=== PATIENT | female | born 1990 | race Caucasian/White ===

== ENCOUNTER → 2019-11-07 | Emergency (ER) | payer BC | LOC: MW.ED 13:35 | DX: Z53.21 Procedure and treatment not carried out due to patient leaving prior to being seen by health care provider (principal) ==

== ENCOUNTER 2020-02-18 23:16 | Inpatient (IN) | payer BC ==
[2020-02-18] MEDS ORDERED: Sodium Chloride 0.9% 2.5 ML Syringe FLUSH PRN (23:30)
[2020-02-18] MEDS ORDERED: Sodium Chloride 0.9% 10 ML Syringe FLUSH PRN (23:30)
[2020-02-18] MEDS ORDERED: Sodium Chloride 0.9% 10 ML SDV IV PRN (23:30)
[2020-02-18] MEDS ORDERED: Ampicillin 2 GM in Sodium Chloride 0.9% 100 ML IV ONE (23:33)
[2020-02-19] MEDS ORDERED: Lactated Ringers 1,000 ML IV SCH (00:15)
[2020-02-19] MEDS ORDERED: Water For Irrigation,Sterile 1,000 ML Container IRR PRN (03:11)
[2020-02-19] MEDS ORDERED: Nalbuphine 10 MG/1 ML Vial IVPUSH PRN (03:11)
[2020-02-19] MEDS ORDERED: Methylergonovine 0.2 MG/1 ML Amp IM PRN (03:11)
[2020-02-19] MEDS ORDERED: Lidocaine 1% 50 ML MDV INJECT PRN (03:11)
[2020-02-19] MEDS ORDERED: Butorphanol 1 MG/ML SDV IVPUSH PRN (03:11)
[2020-02-19] MEDS ORDERED: Tranexamic Acid 1,000 MG in Sodium Chloride 0.9% 100 ML IV PRN ×2 (03:11→14:45)
[2020-02-19] MEDS ORDERED: Carboprost Tromethamine 250 MCG/1 ML Amp IM PRN (03:11)
[2020-02-19] MEDS ORDERED: Sodium Chloride 0.9% 2.5 ML Syringe FLUSH PRN (03:11)
[2020-02-19] MEDS ORDERED: Misoprostol 200 MCG Tab PO PRN ×2 (03:11→14:45)
[2020-02-19] MEDS ORDERED: Ondansetron 4 MG Tab.DIS PO PRN (03:11)
[2020-02-19] MEDS ORDERED: Sodium Chloride 0.9% 10 ML Syringe FLUSH PRN (03:11)
[2020-02-19] MEDS ORDERED: Sodium Chloride 0.9% 10 ML SDV IV PRN (03:11)
[2020-02-19] MEDS ORDERED: Oxytocin/0.9 % Sodium Chloride 30 UNIT/500 ML BAG IV SCH ×2 (03:15→13:00)
[2020-02-19] MEDS: Lactated Ringers 1,000 ML IV SCH ×2 (03:55→10:02)
[2020-02-19] MEDS ORDERED: Ampicillin 1 GM in Sodium Chloride 0.9% 50 ML IV SCH ×2 (04:00)
[2020-02-19] MEDS ORDERED: fentaNYL 100 MCG/2 ML SDV ONE ×2 (07:54→13:22)
[2020-02-19] MEDS ORDERED: Ropivacaine HCl/PF 100 ML ONE ×2 (07:55→13:22)
[2020-02-19] MEDS ORDERED: Ondansetron 4 MG/2 ML SDV IVPUSH PRN (08:49)
[2020-02-19] MEDS: Ampicillin 1 GM in Sodium Chloride 0.9% 50 ML IV SCH ×2 (08:59→14:15)
[2020-02-19] MEDS ORDERED: Labetalol 100 MG Tab PO SCH (09:00)
--- NOTE | 2020-02-19 10:34 | PCM.PREANE ---
Preanesthetic Assessment - Procedure Proposed Procedure: SHELLI for labor analgesia. Late entry, bedside to assess at 0757 - Anesthesia/Transfusion/Family Hx Anesthesia History: Prior Anesthesia Without Reaction (Previous epidural without complications, GA for lysis of endomedriosis without complications) Family History of Anesthesia Reaction: No Transfusion History: No Prior Transfusion(s) Intubation History: Unknown Additional History: Gestational hypertension, well-controlled - Review of Systems General: No Symptoms Pulmonary: No Symptoms Cardiovascular: No Symptoms Gastrointestinal: No Symptoms Neurological: No Symptoms Other: Reports: None - Physical Assessment NPO Status Date: 02/19/20 (Clear liquids s/p epidural placement) NPO Status Time: 07:00 Vital Signs: Last Vital Signs Temp Pulse 114 H 02/19/20 09:00 Resp BP 103/40 L 02/19/20 09:00 Pulse Ox Height: 1.73 m Weight: 109.769 kg ASA Class: 2 Mental Status: Alert & Oriented x3 Airway Class: Mallampati = 2 Dentition: Reports: Normal Dentition Thyro-Mental Finger Breadths: 3 Mouth Opening Finger Breadths: 3 ROM/Head Extension: Full Lungs: Normal Respiratory Effort Cardiovascular: Regular Rate, Regular Rhythm - Lab Values: Laboratory Last Values WBC 13.32 K/uL (4.0-11.0) H 02/18/20 23:40 RBC 3.87 M/uL (4.30-5.90) L 02/18/20 23:40 Hgb 10.9 g/dL (12.0-16.0) L 02/18/20 23:40 Hct 34.4 % (36.0-46.0) L 02/18/20 23:40 MCV 88.9 fL (80.0-98.0) 02/18/20 23:40 MCH 28.2 pg (27.0-32.0) 02/18/20 23:40 MCHC 31.7 g/dL (31.0-37.0) 02/18/20 23:40 RDW Std Deviation 47.3 fl (28.0-62.0) 02/18/20 23:40 RDW Coeff of Neo 15 % (11.0-15.0) 02/18/20 23:40 Plt Count 248 K/uL (150-400) 02/18/20 23:40 MPV 9.20 fL (7.40-12.00) 02/18/20 23:40 Neut % (Auto) 69.6 % (48.0-80.0) 02/18/20 23:40 Lymph % (Auto) 21.4 % (16.0-40.0) 02/18/20 23:40 Cal[place]oun % (Auto) 5.3 % (0.0-15.0) 02/18/20 23:40 Eos % (Auto) 3.5 % (0.0-7.0) 02/18/20 23:40 Baso % (Auto) 0.2 % (0.0-1.5) 02/18/20 23:40 Neut # (Auto) 9.3 K/uL (1.4-5.7) H 02/18/20 23:40 Lymph # (Auto) 2.9 K/uL (0.6-2.4) H 02/18/20 23:40 Calhoun # (Auto) 0.7 K/uL (0.0-0.8) 02/18/20 23:40 Eos # (Auto) 0.5 K/uL (0.0-0.7) 02/18/20 23:40 Baso # (Auto) 0.0 K/uL (0.0-0.1) 02/18/20 23:40 Nucleated RBC % 0.0 /100WBC 02/18/20 23:40 Nucleated RBCs # 0 K/uL 02/18/20 23:40 SARS-CoV-2 RNA (GEN[facility]A) NEGATIVE (NEGATIVE) 02/19/20 00:00 Blood Type A POSITIVE 02/18/20 23:40 Antibody Screen NEGATIVE 02/18/20 23:40 - Allergies Allergies/Adverse Reactions: Allergies Allergy/AdvReac Type Severity Reaction Status Date / Time metronidazole [From Flagyl] Allergy Hives Verified 01/11/20 14:36 peanut Allergy Anaphylactic Verified 01/11/20 14:36 Shock progesterone Allergy Anaphylactic Verified 01/11/20 14:36 Shock - Acknowledgements Anesthesia Type Planned: Epidural Pt an Appropriate Candidate for the Planned Anesthesia: Yes Alternatives and Risks of Anesthesia Discussed w Pt/Guardian: Yes Pt/Guardian Understands and Agrees with Anesthesia Plan: Yes Additional Comments: Discussed epidural risks, benefits, alternatives, [employer], and anesthesia coverage. All questions answered and concerns addressed. Consent signed with RN witness. PreAnesthesia Questionnaire HEENT History: Reports: Other (See Below) Other HEENT History: wears glasses, top and bottom permanent retainers Cardiovascular History: Reports: None Respiratory History: Reports: None Gastrointestinal History: Reports: GERD, Irritable Bowel Syndrome Genitourinary History: Reports: None WORSHIP DIRECTOR History: Reports: Endometriosis, Polycystic Ovaries, Musculoskeletal History: Reports: Fracture Other Musculoskeletal History: hx fx elbow Neurological History: Reports: None Psychiatric History: Reports: Anxiety Endocrine/Metabolic History: Reports: Hypothyroidism, Obesity/BMI 30+ Other Endocrine/Metabolic History: hypothyroid in the past, no longer on medication Hematologic History: Reports: None Immunologic History: Reports: None Oncologic (Cancer) History: Reports: None Dermatologic History: Reports: None - Infectious Disease History Infectious Disease History: Reports: Chicken Pox - Past Surgical History Head Surgeries/Procedures: Reports: None HEENT Surgical History: Reports: Adenoidectomy, Tonsillectomy Cardiovascular Surgical History: Reports: None Respiratory Surgical History: Reports: None GI Surgical History: Reports: Colonoscopy, EGD Other GI Surgeries/Procedures: hx diagnostic and exploratory laparoscopy Other Female Surgeries/Procedures: diagnostic and exploratory laparoscopy Endocrine Surgical History: Reports: None Neurological Surgical History: Reports: None Musculoskeletal Surgical History: Reports: None Oncologic Surgical History: Reports: None Dermatological Surgical History: Reports: None - HOME MEDS Home Medications: Home Meds Eluxadoline [Viberzi] 1 mg PO BID 08/19/17 [History] Famotidine [Pepcid] 20 mg PO BID 08/19/17 [History] Pnv No.95/Ferrous Fum/Folic AC [ Vitamin Tablet] 1 tab PO DAILY 08/20/18 [History] Ondansetron [Zofran ODT] 4 - 8 mg PO Q6H PRN 7 Days #30 tab.dis 08/26/18 [Rx] Labetalol [Normodyne] 100 mg PO DAILY 01/11/20 [History] - CURRENT (IN HOUSE) MEDS Current Meds: Current Medications Butorphanol Tartrate (Stadol) 1 mg IVPUSH Q1H PRN PRN Reason: Pain Last Admin: 02/19/20 03:54 Dose: 1 mg Documented by: Carboprost Tromethamine (Hemabate Ds) 250 mcg IM ASDIRECTED PRN PRN Reason: Post Hemorrhage Lactated Ringer's (Ringers, Lactated) 1,000 mls @ 999 mls/hr IV .BOLUS [facility] Lactated Ringer's (Ringers, Lactated) 1,000 mls @ 150 mls/hr IV ASDIRECTED [facility] Last Admin: 02/19/20 10:02 Dose: 150 mls/hr Documented by: Oxytocin/Sodium Chloride (Oxytocin 30 Unit/500 Ml-Ns) 30 unit in 500 mls @ 999 mls/hr IV TITRATE [facility] Tranexamic Acid 1,000 mg/ (Sodium Chloride) 110 mls @ 660 mls/hr IV ONETIME PRN PRN Reason: Bleeding Ampicillin Sodium 1 gm/ Sodium (Chloride) 50 mls @ 100 mls/hr IV Q4H [facility] Last Admin: 02/19/20 08:59 Dose: 100 mls/hr Documented by: Labetalol HCl (Normodyne) 100 mg PO BID [facility] Last Admin: 02/19/20 09:00 Dose: Not Given Documented by: Lidocaine HCl (Xylocaine 1%) 50 ml INJECT ONETIME PRN PRN Reason: Laceration repair Methylergonovine Maleate (Methergine) 0.2 mg IM ASDIRECTED PRN PRN Reason: Post Hemorrhage Misoprostol (Cytotec) 200 mcg PO ONETIME PRN PRN Reason: Post Hemorrhage Nalbuphine HCl (Nubain) 10 mg IVPUSH Q1H PRN PRN Reason: Pain (severe 7-10) Ondansetron HCl (Zofran Odt) 4 mg PO Q6H PRN PRN Reason: Nausea/Vomiting Ondansetron HCl (Zofran) 4 mg IVPUSH Q6H PRN PRN Reason: Nausea/Vomiting Last Admin: 02/19/20 08:53 Dose: 4 mg Documented by: Sodium Chloride (Normal Saline) 10 ml IV ASDIRECTED PRN PRN Reason: IV Use Sodium Chloride (Saline Flush) 10 ml FLUSH ASDIRECTED PRN PRN Reason: Keep Vein Open Sodium Chloride (Saline Flush) 2.5 ml FLUSH ASDIRECTED PRN PRN Reason: Keep Vein Open Sodium Chloride (Saline Flush) 10 ml FLUSH ASDIRECTED PRN PRN Reason: Keep Vein Open Sodium Chloride (Saline Flush) 2.5 ml FLUSH ASDIRECTED PRN PRN Reason: Keep Vein Open Sodium Chloride (Normal Saline) 10 ml IV ASDIRECTED PRN PRN Reason: IV Use Sterile Water (Sterile Water For Irrigation) 1,000 ml IRR ASDIRECTED PRN PRN Reason: delivery Discontinued Medications Fentanyl (Sublimaze) Confirm Administered Dose 200 mcg .ROUTE .STK-MED ONE Stop: 02/19/20 07:55 Ampicillin Sodium 2 gm/ Sodium (Chloride) 100 mls @ 200 mls/hr IV ONETIME ONE Stop: 02/19/20 00:02 Last Admin: 02/19/20 00:00 Dose: 200 mls/hr Documented by: Ampicillin Sodium 1 gm/ Sodium (Chloride) 50 mls @ 100 mls/hr IV Q4H [facility] Last Admin: 02/19/20 04:29 Dose: 100 mls/hr Documented by: Ropivacaine (Naropin 0.2%) Confirm Administered Dose 100 mls @ as directed .ROUTE .STK-MED ONE Stop: 02/19/20 07:56
--- NOTE | 2020-02-19 10:37 | PCM.SN.2 ---
- Free Text/Narrative Note: Late entry Anesthesia time 0757- 0832 0757- Bedside for SHELLI for labor analgesia as requested by patient. H & P perfor med with patient participation. Discussed epidural risks, benefits, alternatives, EQUINE INTERN, and anesthesia coverage. All questions answered and concerns addressed. Consent signed with RN witness. 0805 - Sitting position, monitors on (BP, pulse ox), "time out" performed 0808- Sterile technique employed. Chlorhexidine to prep., sterile plastic drape, lido 1% for localization. 0812- First attempt successful at L3-4 with TORO at 6.5cm. One redirect for transient LLE paresthesia. Did not recur. Catheter threaded to 12cm without resistance or paresthesias. 0813- Negative to aspiration for both CSF and heme, test dose negative. 0821- Infusion started (0.2% ropivicaine with 2mcg/ml fentanyl at 8ml/hr, 4ml Q10min EQUINE INTERN option, 34 ml/hr lockout). Bolus of 6ml ropiv./fentanyl and remaining 2ml of lido. 1.5% c/ epi. given. 0832- reassessed, T10 level achieved, pt reports satisfactory pain control, VSS.
--- NOTE | 2020-02-19 13:38 | PCM.SN.2 ---
- Free Text/Narrative Note: Anesthesia time [id number] Bedside as requested for epidural bag change. New bag of ropivicaine 0.2% with fentanyl 2mcg/ml (100 ml) hung. Pt states she is a bit frustrated at having to use her [employer] button frequently. Level drops to T12, and she experiences 8/10 pain with contractions in anterior abdomen between boluses. [employer] bolus brings level back up to T10 with adequate pain relief. Epidural rate changed from 8 to 10ml/hr, [employer] remains at 4ml Q10min with 34ml/hr lockout. 5ml clinician bolus administered (1325). 1338- Pt reports improved pain control from bolus. VS remain stable.
--- NOTE | 2020-02-19 14:43 | PCM.DEL ---
L & D Note - General Info Date of Service: 02/19/20 Mother's Due Date: 03/14/20 - Delivery Note Labor: Spontaneous, Augmented by ARM, Augmented by Oxytocin Delivery Outcome: Livebirth Presentation: Right Occiput Anterior (PABLO) (rotated from ROP) Nuchal Cord: Present (x2), Reduced Prep: Other Anesthesia Type: Epidural Amniotic Fluid Description: Clear Episiotomy Type: None Laceration: None Placenta: Intact, Spontaneous Cord: 3 Vessels Estimated Blood Loss: 200 Resuscitation Needed: No : Suctioned, Bulb Syringe (see peds note.), Stimulated, Warmed, Warmer Used (see peds notes ) Score 1 min: 7 Score 5 min: 8 Delivery Comments (Free Text/Narrative):: liveborn male 7/8 weight pending. - General Info Date of Service: 02/19/20 - Patient Data Vitals - Most Recent: Last Vital Signs Temp Pulse 114 H 02/19/20 09:00 Resp BP 103/40 L 02/19/20 09:00 Pulse Ox Weight - Most Recent: 109.769 kg Lab Results Last 24 Hours: Laboratory Results - last 24 hr 02/18/20 02/18/20 02/19/20 Range/Units 23:40 23:40 00:00 WBC 13.32 H (4.0-11.0) K/uL RBC 3.87 L (4.30-5.90) M/uL Hgb 10.9 L (12.0-16.0) g/dL Hct 34.4 L (36.0-46.0) % MCV 88.9 (80.0-98.0) fL MCH 28.2 (27.0-32.0) pg MCHC 31.7 (31.0-37.0) g/dL RDW Std Deviation 47.3 (28.0-62.0) fl RDW Coeff of Neo 15 (11.0-15.0) % Plt Count 248 (150-400) K/uL MPV 9.20 (7.40-12.00) fL Neut % (Auto) 69.6 (48.0-80.0) % Lymph % (Auto) 21.4 (16.0-40.0) % Hartley % (Auto) 5.3 (0.0-15.0) % Eos % (Auto) 3.5 (0.0-7.0) % Baso % (Auto) 0.2 (0.0-1.5) % Neut # (Auto) 9.3 H (1.4-5.7) K/uL Lymph # (Auto) 2.9 H (0.6-2.4) K/uL Hartley # (Auto) 0.7 (0.0-0.8) K/uL Eos # (Auto) 0.5 (0.0-0.7) K/uL Baso # (Auto) 0.0 (0.0-0.1) K/uL Nucleated RBC % 0.0 /100WBC Nucleated RBCs # 0 K/uL SARS-CoV-2 RNA ([facility]) NEGATIVE (NEGATIVE) Blood Type A POSITIVE Antibody Screen NEGATIVE Med Orders - Current: Current Medications Butorphanol Tartrate (Stadol) 1 mg IVPUSH Q1H PRN PRN Reason: Pain Last Admin: 02/19/20 03:54 Dose: 1 mg Documented by: Carboprost Tromethamine (Hemabate Ds) 250 mcg IM ASDIRECTED PRN PRN Reason: Post Hemorrhage Lactated Ringer's (Ringers, Lactated) 1,000 mls @ 999 mls/hr IV .BOLUS [facility] Lactated Ringer's (Ringers, Lactated) 1,000 mls @ 150 mls/hr IV ASDIRECTED [facility] Last Admin: 02/19/20 10:02 Dose: 150 mls/hr Documented by: Oxytocin/Sodium Chloride (Oxytocin 30 Unit/500 Ml-Ns) 30 unit in 500 mls @ 999 mls/hr IV TITRATE [facility] Tranexamic Acid 1,000 mg/ (Sodium Chloride) 110 mls @ 660 mls/hr IV ONETIME PRN PRN Reason: Bleeding Ampicillin Sodium 1 gm/ Sodium (Chloride) 50 mls @ 100 mls/hr IV Q4H [facility] Last Admin: 02/19/20 14:15 Dose: 100 mls/hr Documented by: Oxytocin/Sodium Chloride (Oxytocin 30 Unit/500 Ml-Ns) 30 unit in 500 mls @ 2 mls/hr IV TITRATE [facility]; Protocol Last Admin: 02/19/20 13:26 Dose: 2 munits/min, 2 mls/hr Documented by: Labetalol HCl (Normodyne) 100 mg PO BID [facility] Last Admin: 02/19/20 09:00 Dose: Not Given Documented by: Lidocaine HCl (Xylocaine 1%) 50 ml INJECT ONETIME PRN PRN Reason: Laceration repair Methylergonovine Maleate (Methergine) 0.2 mg IM ASDIRECTED PRN PRN Reason: Post Hemorrhage Misoprostol (Cytotec) 200 mcg PO ONETIME PRN PRN Reason: Post Hemorrhage Nalbuphine HCl (Nubain) 10 mg IVPUSH Q1H PRN PRN Reason: Pain (severe 7-10) Ondansetron HCl (Zofran Odt) 4 mg PO Q6H PRN PRN Reason: Nausea/Vomiting Ondansetron HCl (Zofran) 4 mg IVPUSH Q6H PRN PRN Reason: Nausea/Vomiting Last Admin: 02/19/20 08:53 Dose: 4 mg Documented by: Sodium Chloride (Normal Saline) 10 ml IV ASDIRECTED PRN PRN Reason: IV Use Sodium Chloride (Saline Flush) 10 ml FLUSH ASDIRECTED PRN PRN Reason: Keep Vein Open Sodium Chloride (Saline Flush) 2.5 ml FLUSH ASDIRECTED PRN PRN Reason: Keep Vein Open Sodium Chloride (Saline Flush) 10 ml FLUSH ASDIRECTED PRN PRN Reason: Keep Vein Open Sodium Chloride (Saline Flush) 2.5 ml FLUSH ASDIRECTED PRN PRN Reason: Keep Vein Open Sodium Chloride (Normal Saline) 10 ml IV ASDIRECTED PRN PRN Reason: IV Use Sterile Water (Sterile Water For Irrigation) 1,000 ml IRR ASDIRECTED PRN PRN Reason: delivery Discontinued Medications Fentanyl (Sublimaze) Confirm Administered Dose 200 mcg .ROUTE .STK-MED ONE Stop: 02/19/20 07:55 Fentanyl (Sublimaze) Confirm Administered Dose 200 mcg .ROUTE .STK-MED ONE Stop: 02/19/20 13:23 Ampicillin Sodium 2 gm/ Sodium (Chloride) 100 mls @ 200 mls/hr IV ONETIME ONE Stop: 02/19/20 00:02 Last Admin: 02/19/20 00:00 Dose: 200 mls/hr Documented by: Ampicillin Sodium 1 gm/ Sodium (Chloride) 50 mls @ 100 mls/hr IV Q4H [facility] Last Admin: 02/19/20 04:29 Dose: 100 mls/hr Documented by: Ropivacaine (Naropin 0.2%) Confirm Administered Dose 100 mls @ as directed .ROUTE .STK-MED ONE Stop: 02/19/20 07:56 Ropivacaine (Naropin 0.2%) Confirm Administered Dose 100 mls @ as directed .ROUTE .STK-MED ONE Stop: 02/19/20 13:23 - Problem List & Annotations (1) labor in third trimester with delivery SNOMED Code(s): 49432540747738410 Code(s): O60.14X0 - LABOR THIRD TRI W DELIVERY THIRD TRI, UNSP Status: Acute Current Visit: Yes - Problem List Review Problem List Initiated/Reviewed/Updated: Yes - My Orders Last 24 Hours: My Active Orders 02/18/20 23:30 Vital Signs [RC] PER UNIT ROUTINE Sodium Chloride 0.9% [Normal Saline] 10 ml IV ASDIRECTED PRN Sodium Chloride 0.9% [Saline Flush] 10 ml FLUSH ASDIRECTED PRN Sodium Chloride 0.9% [Saline Flush] 2.5 ml FLUSH ASDIRECTED PRN Peripheral IV Insertion Adult [OM.PC] Urgent 02/18/20 23:40 RPR (SYPHILIS SERO) W/ RFLX [REF] Stat 02/19/20 00:15 Lactated Ringers [Ringers, Lactated] 1,000 ml IV .BOLUS 02/19/20 03:11 Patient Status [ADT] Routine May Shower [RC] ASDIRECTED Notify Provider [RC] PRN Up ad Jeana [RC] ASDIRECTED Vital Signs [RC] PER UNIT ROUTINE Butorphanol [Stadol] 1 mg IVPUSH Q1H PRN Carboprost Tromethamine [Hemabate DS] 250 mcg IM ASDIRECTED PRN Lidocaine 1% [Xylocaine 1%] 50 ml INJECT ONETIME PRN Methylergonovine [Methergine] 0.2 mg IM ASDIRECTED PRN Nalbuphine [Nubain] 10 mg IVPUSH Q1H PRN Ondansetron [Zofran ODT] 4 mg PO Q6H PRN Sodium Chloride 0.9% [Normal Saline] 10 ml IV ASDIRECTED PRN Sodium Chloride 0.9% [Saline Flush] 10 ml FLUSH ASDIRECTED PRN Sodium Chloride 0.9% [Saline Flush] 2.5 ml FLUSH ASDIRECTED PRN Tranexamic Acid [Cyklokapron] 1,000 mg Sodium Chloride 0.9% [Normal Saline] 100 ml IV ONETIME Water For Irrigation,Sterile [Sterile Water for Irrigation] 1,000 ml IRR ASDIRECTED PRN miSOPROStoL [Cytotec] 200 mcg PO ONETIME PRN Scalp Electrode [WOMSER] Per Unit Routine Peripheral IV Insertion Adult [OM.PC] Routine Resuscitation Status Routine 02/19/20 03:15 Lactated Ringers [Ringers, Lactated] 1,000 ml IV ASDIRECTED Oxytocin/0.9 % Sodium Chloride [Oxytocin 30 Unit/500 ML-NS] 30 unit in 500 ml IV TITRATE 02/19/20 Breakfast Clear Liquid Diet [DIET] 02/19/20 08:30 Ampicillin 1 gm Sodium Chloride 0.9% [Normal Saline] 50 ml IV Q4H 02/19/20 08:49 Ondansetron [Zofran] 4 mg IVPUSH Q6H PRN 02/19/20 09:00 Labetalol [Normodyne] 100 mg PO BID 02/19/20 13:00 Oxytocin/0.9 % Sodium Chloride [Oxytocin 30 Unit/500 ML-NS] 30 unit in 500 ml IV TITRATE
[2020-02-19] MEDS ORDERED: Lanolin 100% Cream 7 GM Tube TOP PRN (14:45)
[2020-02-19] MEDS ORDERED: Witch Hazel Medicated Pads 40/Jar TOP PRN (14:45)
[2020-02-19] MEDS ORDERED: Benzocaine/Menthol 20%-0.5% Spray 78 GM Cannister TOP PRN (14:45)
[2020-02-19] MEDS ORDERED: Acetaminophen 500 MG Tab PO PRN (14:45)
[2020-02-19] MEDS ORDERED: Docusate Sodium 100 MG Cap PO PRN (14:45)
[2020-02-19] MEDS ORDERED: Bisacodyl 10 MG Supp RECTAL PRN (14:45)
[2020-02-19] MEDS ORDERED: Ibuprofen 400 MG Tab PO PRN (14:45)
--- NOTE | 2020-02-19 16:10 | OR ---
SURGEON: Kristel Magallanes M.D. DATE OF PROCEDURE: 02/19/2020 PREOPERATIVE DIAGNOSES: A 36-4/7 weeks' intrauterine , active spontaneous labor, protracted with augmentation, group B strep positive. POSTOPERATIVE DIAGNOSES: A 36-4/7 weeks' intrauterine , active spontaneous labor, protracted with augmentation, group B strep positive. PROCEDURES: Pitocin augmentation of labor, term spontaneous vaginal delivery. PRIMARY SURGEON: Kristel Magallanes MD ANESTHESIA: Epidural. ESTIMATED BLOOD LOSS: Less than 200 mL. FINDINGS: Liveborn male, score of 7 and 8, weight is pending at the time of dictation. Placenta spontaneous, Schultze intact, with 3 vessels. Perineum intact. COMPLICATIONS: None known. DISPOSITION: Mother and baby are in LDR in good condition. BRIEF HISTORY: This is a 29-year-old female, G2, P 1-0-0-1. She presents at 36-4/7 weeks' gestation with regular painful contractions. Initially, when she was seen, she was 1 to 2 cm dilated. She progressed to 4 to 5 cm dilatation. Therefore, she was admitted. She received multiple doses of ampicillin. She did continue to progress with the cervix moving forward at 5 cm, 80%, minus 2 station. Therefore, artificial rupture of membranes was performed after she had received multiple doses of ampicillin and clear fluid was noted. Beyond this, she had slow progress, and she was given Pitocin up to a maximum of 2 milliunits per minute and progressed to complete. DESCRIPTION OF PROCEDURE: With the patient in dorsal lithotomy position, the patient began to push. It was noted that the fetus was in the right occiput posterior position. The head was gently turned onto the right occiput anterior position, and over the following contraction, the patient pushed to a 5+ station at which time the head was delivered spontaneously and atraumatically over the perineum with support, subsequent delivery of the 's shoulders and body without any difficulty. The infant was bulb suctioned by nose and mouth, and after 2 minutes, the cord was doubly clamped and cut. The was handed to the mother in the presence of nurse attending delivery. The infant was a liveborn male, score of 7 and 8, weight is pending at the time of dictation. Cord blood was collected for cord ABGs as well as routine cord blood sampling. Pitocin was initiated after delivery of the infant to assist with delivery of the placenta, which was delivered spontaneously, Schultze intact, with 3 vessels. Upon inspection of the pelvis and perineum, there were no periurethral, vaginal sidewall, cervical, rectal, or perineal lacerations. EBL was less than 200 mL. There were no known complications. Mother and baby remained in LDR in good condition. GABBY / ZINA /[id number]
[2020-02-19] MEDS: Ibuprofen 800 MG Tab PO PRN (18:10)
[2020-02-19] MEDS ORDERED: ELUXADOLINE 75 MG PO SCH (21:00)
[2020-02-19] MEDS: Famotidine 20 MG Tab PO SCH (21:54)
[2020-02-19] MEDS: Acetaminophen 500 MG Tab PO PRN (21:54)
[2020-02-20] MEDS: Ibuprofen 800 MG Tab PO PRN ×2 (03:46→16:59)
[2020-02-20] MEDS: Famotidine 20 MG Tab PO SCH ×2 (08:48→21:19)
[2020-02-20] MEDS: Prenatal Multivitamin and Multimineral with Iron Tab PO SCH (08:48)
[2020-02-20] MEDS: Acetaminophen 500 MG Tab PO PRN ×2 (08:49→21:21)
--- NOTE | 2020-02-20 13:13 | PCM.PNPP ---
- General Info Date of Service: 02/20/20 Functional Status: Reports: Pain Controlled, Tolerating Diet, Ambulating, Urinating - Review of Systems General: Reports: No Symptoms HEENT: Reports: No Symptoms Pulmonary: Reports: No Symptoms Cardiovascular: Reports: No Symptoms Gastrointestinal: Reports: No Symptoms Genitourinary: Reports: No Symptoms Musculoskeletal: Reports: No Symptoms Skin: Reports: No Symptoms Neurological: Reports: No Symptoms Psychiatric: Reports: No Symptoms - Patient Data Vital Signs - Most Recent: Last Vital Signs Temp 36.4 C 02/20/20 08:24 Pulse 85 02/20/20 08:24 Resp 16 02/20/20 08:24 BP 123/71 02/20/20 08:24 Pulse Ox 95 02/20/20 08:24 Weight - Most Recent: 109.769 kg Lab Results - Last 24 Hours: Laboratory Results - last 24 hr 02/19/20 02/20/20 Range/Units 14:25 06:00 Hgb 9.1 L (12.0-16.0) g/dL Hct 29.5 L (36.0-46.0) % Cord ABG pH 7.272 (7.18-7.38) Cord ABG Base Excess -5 (-10--2) Cord VBG pH 7.354 (7.25-7.45) Cord VBG Base Excess -5 (-10--2) Med Orders - Current: Current Medications Acetaminophen (Tylenol Extra Strength) 500 mg PO Q4H PRN PRN Reason: Pain Acetaminophen (Tylenol Extra Strength) 1,000 mg PO Q4H PRN PRN Reason: Pain Last Admin: 02/20/20 08:49 Dose: 1,000 mg Documented by: Benzocaine/Menthol (Dermoplast Pain Relief 20%-0.5% [place]) 78 gm TOP ASDIRECTED PRN PRN Reason: Perineal Comfort Measure Bisacodyl (Dulcolax) 10 mg RECTAL ONETIME PRN PRN Reason: Constipation Docusate Sodium (Colace) 100 mg PO BID PRN PRN Reason: Constipation Emollient Ointment (Lansinoh Hpa) 0 gm TOP ASDIRECTED PRN PRN Reason: Sore Nipples Famotidine (Pepcid) 20 mg PO BID [facility] Last Admin: 02/20/20 08:48 Dose: 20 mg Documented by: Tranexamic Acid 1,000 mg/ (Sodium Chloride) 110 mls @ 660 mls/hr IV ONETIME PRN PRN Reason: Bleeding Ibuprofen (Motrin) 400 mg PO Q4H PRN PRN Reason: Pain Ibuprofen (Motrin) 800 mg PO Q6H PRN PRN Reason: Pain Last Admin: 02/20/20 03:46 Dose: 800 mg Documented by: Misoprostol (Cytotec) 1,000 mcg PO ONETIME PRN PRN Reason: excessive vaginal bleeding Eluxadoline [Viberzi (] 75 Mg) 1 each PO BID [facility] Prenat Multivit/Ogle/Iron/Folic Ac ( Mtr) 1 each PO DAILY [facility] Last Admin: 02/20/20 08:48 Dose: 1 each Documented by: Asim Sanchez ([facility]) 1 pad TOP ASDIRECTED PRN PRN Reason: comfort care Discontinued Medications Butorphanol Tartrate (Stadol) 1 mg IVPUSH Q1H PRN PRN Reason: Pain Last Admin: 02/19/20 03:54 Dose: 1 mg Documented by: Carboprost Tromethamine (Hemabate Ds) 250 mcg IM ASDIRECTED PRN PRN Reason: Post Hemorrhage Fentanyl (Sublimaze) Confirm Administered Dose 200 mcg .ROUTE .STK-MED ONE Stop: 02/19/20 07:55 Fentanyl (Sublimaze) Confirm Administered Dose 200 mcg .ROUTE .STK-MED ONE Stop: 02/19/20 13:23 Ampicillin Sodium 2 gm/ Sodium (Chloride) 100 mls @ 200 mls/hr IV ONETIME ONE Stop: 02/19/20 00:02 Last Admin: 02/19/20 00:00 Dose: 200 mls/hr Documented by: Lactated Ringer's (Ringers, Lactated) 1,000 mls @ 999 mls/hr IV .BOLUS [facility] Lactated Ringer's (Ringers, Lactated) 1,000 mls @ 150 mls/hr IV ASDIRECTED [facility] Last Admin: 02/19/20 10:02 Dose: 150 mls/hr Documented by: Oxytocin/Sodium Chloride (Oxytocin 30 Unit/500 Ml-Ns) 30 unit in 500 mls @ 999 mls/hr IV TITRATE [facility] Tranexamic Acid 1,000 mg/ (Sodium Chloride) 110 mls @ 660 mls/hr IV ONETIME PRN PRN Reason: Bleeding Ampicillin Sodium 1 gm/ Sodium (Chloride) 50 mls @ 100 mls/hr IV Q4H [facility] Last Admin: 02/19/20 04:29 Dose: 100 mls/hr Documented by: Ropivacaine (Naropin 0.2%) Confirm Administered Dose 100 mls @ as directed .ROUTE .[facility] ONE Stop: 02/19/20 07:56 Ampicillin Sodium 1 gm/ Sodium (Chloride) 50 mls @ 100 mls/hr IV Q4H [facility] Last Admin: 02/19/20 14:15 Dose: 100 mls/hr Documented by: Oxytocin/Sodium Chloride (Oxytocin 30 Unit/500 Ml-Ns) 30 unit in 500 mls @ 2 mls/hr IV TITRATE [facility]; Protocol Last Admin: 02/19/20 13:26 Dose: 2 munits/min, 2 mls/hr Documented by: Ropivacaine (Naropin 0.2%) Confirm Administered Dose 100 mls @ as directed .ROUTE .[facility] ONE Stop: 02/19/20 13:23 Labetalol HCl (Normodyne) 100 mg PO BID [facility] Last Admin: 02/19/20 09:00 Dose: Not Given Documented by: Lidocaine HCl (Xylocaine 1%) 50 ml INJECT ONETIME PRN PRN Reason: Laceration repair Methylergonovine Maleate (Methergine) 0.2 mg IM ASDIRECTED PRN PRN Reason: Post Hemorrhage Misoprostol (Cytotec) 200 mcg PO ONETIME PRN PRN Reason: Post Hemorrhage Nalbuphine HCl (Nubain) 10 mg IVPUSH Q1H PRN PRN Reason: Pain (severe 7-10) Ondansetron HCl (Zofran Odt) 4 mg PO Q6H PRN PRN Reason: Nausea/Vomiting Ondansetron HCl (Zofran) 4 mg IVPUSH Q6H PRN PRN Reason: Nausea/Vomiting Last Admin: 02/19/20 08:53 Dose: 4 mg Documented by: Sodium Chloride (Normal Saline) 10 ml IV ASDIRECTED PRN PRN Reason: IV Use Sodium Chloride (Saline Flush) 10 ml FLUSH ASDIRECTED PRN PRN Reason: Keep Vein Open Sodium Chloride (Saline Flush) 2.5 ml FLUSH ASDIRECTED PRN PRN Reason: Keep Vein Open Sodium Chloride (Saline Flush) 10 ml FLUSH ASDIRECTED PRN PRN Reason: Keep Vein Open Sodium Chloride (Saline Flush) 2.5 ml FLUSH ASDIRECTED PRN PRN Reason: Keep Vein Open Sodium Chloride (Normal Saline) 10 ml IV ASDIRECTED PRN PRN Reason: IV Use Sterile Water (Sterile Water For Irrigation) 1,000 ml IRR ASDIRECTED PRN PRN Reason: delivery - Interaction Infant Disposition, : to Nursery Infant Feeding: Other (see below) (pumping as baby is in nursery on IV) Support Person: - Recovery Exam Fundal Tone: Firm Fundal Level: At Umbilicus Fundal Placement: Midline Lochia Amount: Small Lochia Color: Rubra/Red Perineum Description: Intact, Minimal Bruising/Swelling Episiotomy/Laceration: None Bladder Status: Voiding - Exam General: Alert, Oriented Neck: Supple Lungs: Clear to Auscultation, Normal Respiratory Effort Cardiovascular: Regular Rate, Regular Rhythm GI/Abdominal Exam: Normal Bowel Sounds, Soft, Non-Tender, No Distention Extremities: Normal Inspection, Normal Range of Motion, No Pedal Edema Skin: Warm, Dry, Intact Neurological: No New Focal Deficit Psy/Mental Status: Alert, Normal Affect, Normal Mood - Problem List & Annotations (1) labor in third trimester with delivery SNOMED Code(s): 92488110529760608 Code(s): O60.14X0 - LABOR THIRD TRI W DELIVERY THIRD TRI, UNSP Status: Acute Current Visit: Yes - Problem List Review Problem List Initiated/Reviewed/Updated: Yes - My Orders Last 24 Hours: My Active Orders 02/19/20 14:45 Patient Status [ADT] Routine May Shower [RC] ASDIRECTED Up ad Jeana [RC] ASDIRECTED Vital Signs [RC] PER UNIT ROUTINE Acetaminophen [Tylenol Extra Strength] 1,000 mg PO Q4H PRN Acetaminophen [Tylenol Extra Strength] 500 mg PO Q4H PRN Benzocaine/Menthol [Dermoplast Pain Relief 20%-0.5% [place]] 78 gm TOP ASDIRECTED PRN Docusate Sodium [Colace] 100 mg PO BID PRN Ibuprofen [Motrin] 400 mg PO Q4H PRN Ibuprofen [Motrin] 800 mg PO Q6H PRN Lanolin [Lansinoh HPA] See Dose Instructions TOP ASDIRECTED PRN Tranexamic Acid [Cyklokapron] 1,000 mg Sodium Chloride 0.9% [Normal Saline] 100 ml IV ONETIME bisacodyL [Dulcolax] 10 mg RECTAL ONETIME PRN miSOPROStoL [Cytotec] 1,000 mcg PO ONETIME PRN witch Tucker [Tucks] 1 pad TOP ASDIRECTED PRN Assess Lochia [WOMSER] Per Unit Routine Assess Uterine Involution [WOMSER] Per Unit Routine Peripheral IV Discontinue [OM.PC] Routine Resuscitation Status Routine 02/19/20 14:46 Perineal Care [OM.PC] Per Unit Routine 02/19/20 Dinner Regular Diet [DIET] 02/19/20 21:00 Famotidine [Pepcid] 20 mg PO BID Patient's Own Medication [Ptom] 1 each PO BID 02/20/20 09:00 Vit/FA/Fe Fumarate/Se [ MTR] 1 each PO DAILY - Assessment Assessment:: PPD#1 after labor and delivery, baby is stable but on antibiotics until cultures return. - Plan Plan:: Continue care. Continue breast pumping and emotional support.
--- NOTE | 2020-02-20 13:34 | PCM48HPAN ---
Post Anesthesia Note - EVALUATION WITHIN 48HRS OF ANESTHETIC Vital Signs in Normal Range: Yes Patient Participated in Evaluation: Yes Respiratory Function Stable: Yes Airway Patent: Yes Cardiovascular Function Stable: Yes Hydration Status Stable: Yes Pain Control Satisfactory: Yes (Denies pain at this time) Nausea and Vomiting Control Satisfactory: Yes (Denies nausea, eating/drinking well) Mental Status Recovered: Yes Vital Signs: Last Vital Signs Temp 36.4 C 02/20/20 08:24 Pulse 85 02/20/20 08:24 Resp 16 02/20/20 08:24 BP 123/71 02/20/20 08:24 Pulse Ox 95 02/20/20 08:24 - COMMENTS/OBSERVATIONS Free Text/Narrative:: Ambulating well, reports full return of strength and sensation to BLE.
[2020-02-21] MEDS: Acetaminophen 500 MG Tab PO PRN (02:00)
[2020-02-21] MEDS: Ibuprofen 800 MG Tab PO PRN (08:07)
[2020-02-21] MEDS: Famotidine 20 MG Tab PO SCH ×2 (09:29→20:58)
[2020-02-21] MEDS: Prenatal Multivitamin and Multimineral with Iron Tab PO SCH (09:29)
--- NOTE | 2020-02-21 09:39 | PCM.PNPP ---
- General Info Date of Service: 02/21/20 Functional Status: Reports: Pain Controlled, Tolerating Diet, Ambulating, Urinating - Review of Systems General: Reports: No Symptoms HEENT: Reports: No Symptoms Pulmonary: Reports: No Symptoms Cardiovascular: Reports: No Symptoms Gastrointestinal: Reports: No Symptoms Genitourinary: Reports: No Symptoms Musculoskeletal: Reports: No Symptoms Skin: Reports: No Symptoms Neurological: Reports: No Symptoms Psychiatric: Reports: No Symptoms - Patient Data Vital Signs - Most Recent: Last Vital Signs Temp 36.5 C 02/21/20 07:32 Pulse 79 02/21/20 07:32 Resp 16 02/21/20 07:32 BP 121/82 02/21/20 07:32 Pulse Ox 97 02/21/20 07:32 Weight - Most Recent: 109.769 kg Med Orders - Current: Current Medications Acetaminophen (Tylenol Extra Strength) 500 mg PO Q4H PRN PRN Reason: Pain Acetaminophen (Tylenol Extra Strength) 1,000 mg PO Q4H PRN PRN Reason: Pain Last Admin: 02/21/20 02:00 Dose: 1,000 mg Documented by: Benzocaine/Menthol (Dermoplast Pain Relief 20%-0.5% [place]) 78 gm TOP ASDIRECTED PRN PRN Reason: Perineal Comfort Measure Bisacodyl (Dulcolax) 10 mg RECTAL ONETIME PRN PRN Reason: Constipation Docusate Sodium (Colace) 100 mg PO BID PRN PRN Reason: Constipation Emollient Ointment (Lansinoh Hpa) 0 gm TOP ASDIRECTED PRN PRN Reason: Sore Nipples Famotidine (Pepcid) 20 mg PO BID [facility] Last Admin: 02/21/20 09:29 Dose: 20 mg Documented by: Tranexamic Acid 1,000 mg/ (Sodium Chloride) 110 mls @ 660 mls/hr IV ONETIME PRN PRN Reason: Bleeding Ibuprofen (Motrin) 400 mg PO Q4H PRN PRN Reason: Pain Ibuprofen (Motrin) 800 mg PO Q6H PRN PRN Reason: Pain Last Admin: 02/21/20 08:07 Dose: 800 mg Documented by: Misoprostol (Cytotec) 1,000 mcg PO ONETIME PRN PRN Reason: excessive vaginal bleeding Eluxadoline [Viberzi (] 75 Mg) 1 each PO BID [facility] Prenat Multivit/[employer]/Iron/Folic Ac ( Mtr) 1 each PO DAILY [facility] Last Admin: 02/21/20 09:29 Dose: 1 each [facility] TOP ASDIRECTED PRN PRN Reason: comfort care Discontinued Medications Butorphanol Tartrate (Stadol) 1 mg IVPUSH Q1H PRN PRN Reason: Pain Last Admin: 02/19/20 03:54 Dose: 1 mg Documented by: Carboprost Tromethamine (Hemabate Ds) 250 mcg IM ASDIRECTED PRN PRN Reason: Post Hemorrhage Fentanyl (Sublimaze) Confirm Administered Dose 200 mcg .ROUTE .STK-MED ONE Stop: 02/19/20 07:55 Fentanyl (Sublimaze) Confirm Administered Dose 200 mcg .ROUTE .STK-MED ONE Stop: 02/19/20 13:23 Ampicillin Sodium 2 gm/ Sodium (Chloride) 100 mls @ 200 mls/hr IV ONETIME ONE Stop: 02/19/20 00:02 Last Admin: 02/19/20 00:00 Dose: 200 mls/hr Documented by: Lactated Ringer's (Ringers, Lactated) 1,000 mls @ 999 mls/hr IV .BOLUS [facility] Lactated Ringer's (Ringers, Lactated) 1,000 mls @ 150 mls/hr IV ASDIRECTED [facility] Last Admin: 02/19/20 10:02 Dose: 150 mls/hr Documented by: Oxytocin/Sodium Chloride (Oxytocin 30 Unit/500 Ml-Ns) 30 unit in 500 mls @ 999 mls/hr IV TITRATE [facility] Tranexamic Acid 1,000 mg/ (Sodium Chloride) 110 mls @ 660 mls/hr IV ONETIME PRN PRN Reason: Bleeding Ampicillin Sodium 1 gm/ Sodium (Chloride) 50 mls @ 100 mls/hr IV Q4H [facility] Last Admin: 02/19/20 04:29 Dose: 100 mls/hr Documented by: Ropivacaine (Naropin 0.2%) Confirm Administered Dose 100 mls @ as directed .ROUTE .STK-MED ONE Stop: 02/19/20 07:56 Ampicillin Sodium 1 gm/ Sodium (Chloride) 50 mls @ 100 mls/hr IV Q4H [facility] Last Admin: 02/19/20 14:15 Dose: 100 mls/hr Documented by: Oxytocin/Sodium Chloride (Oxytocin 30 Unit/500 Ml-Ns) 30 unit in 500 mls @ 2 mls/hr IV TITRATE [facility]; Protocol Last Admin: 02/19/20 13:26 Dose: 2 munits/min, 2 mls/hr Documented by: Ropivacaine (Naropin 0.2%) Confirm Administered Dose 100 mls @ as directed .ROUTE .STK-MED ONE Stop: 02/19/20 13:23 Labetalol HCl (Normodyne) 100 mg PO BID [facility] Last Admin: 02/19/20 09:00 Dose: Not Given Documented by: Lidocaine HCl (Xylocaine 1%) 50 ml INJECT ONETIME PRN PRN Reason: Laceration repair Methylergonovine Maleate (Methergine) 0.2 mg IM ASDIRECTED PRN PRN Reason: Post Hemorrhage Misoprostol (Cytotec) 200 mcg PO ONETIME PRN PRN Reason: Post Hemorrhage Nalbuphine HCl (Nubain) 10 mg IVPUSH Q1H PRN PRN Reason: Pain (severe 7-10) Ondansetron HCl (Zofran Odt) 4 mg PO Q6H PRN PRN Reason: Nausea/Vomiting Ondansetron HCl (Zofran) 4 mg IVPUSH Q6H PRN PRN Reason: Nausea/Vomiting Last Admin: 02/19/20 08:53 Dose: 4 mg Documented by: Sodium Chloride (Normal Saline) 10 ml IV ASDIRECTED PRN PRN Reason: IV Use Sodium Chloride (Saline Flush) 10 ml FLUSH ASDIRECTED PRN PRN Reason: Keep Vein Open Sodium Chloride (Saline Flush) 2.5 ml FLUSH ASDIRECTED PRN PRN Reason: Keep Vein Open Sodium Chloride (Saline Flush) 10 ml FLUSH ASDIRECTED PRN PRN Reason: Keep Vein Open Sodium Chloride (Saline Flush) 2.5 ml FLUSH ASDIRECTED PRN PRN Reason: Keep Vein Open Sodium Chloride (Normal Saline) 10 ml IV ASDIRECTED PRN PRN Reason: IV Use Sterile Water (Sterile Water For Irrigation) 1,000 ml IRR ASDIRECTED PRN PRN Reason: delivery - Infant Interaction Disposition, : [place] in Room with Family Feeding: Other (see below) (pumping as baby is in nursery on IV) Support Person: - Recovery Exam Fundal Tone: Firm Fundal Level: 1 Fingerbreadths Below Umbilicus Fundal Placement: Midline Lochia Amount: Small Lochia Color: Rubra/Red Perineum Description: Intact, Minimal Bruising/Swelling Episiotomy/Laceration: Approximated Bladder Status: Voiding Urinary Elimination: Voided - Exam General: Alert, Oriented Lungs: Normal Respiratory Effort GI/Abdominal Exam: Soft, Non-Tender, No Distention, No Abnormal Bruit Extremities: Normal Inspection, No Pedal Edema Skin: Warm, Dry, Intact Neurological: No New Focal Deficit - Problem List & Annotations (1) labor in third trimester with delivery SNOMED Code(s): 42635983768510223 Code(s): O60.14X0 - LABOR THIRD TRI W DELIVERY THIRD TRI, UNSP Status: Acute Current Visit: Yes Qualifiers: Fetus number: single or unspecified fetus Qualified Code(s): O60.14X0 - labor third trimester with delivery third trimester, not applicable or unspecified - Problem List Review Problem List Initiated/Reviewed/Updated: Yes - My Orders Last 24 Hours: My Active Orders 02/20/20 09:00 Vit/FA/Fe Fumarate/Se [ MTR] 1 each PO DAILY 02/21/20 09:36 Ready for Discharge [RC] PER UNIT ROUTINE - Assessment Assessment:: PPD#2 after labor and delivery, baby will be under bili lights today, but is able to be with mom in room. She has been pumping, initially got good amount of colostrum, no milk yet. - Plan Plan:: Will dismiss from inpatient status by midnight today, may stay rooming in if availability. Discussed need to continue regular pumping for nipple stimulation.Discharge instructions reviewed.
== END 2020-02-21 22:45 | disposition home or self-care (01) | DRG 560 ==
LOC: MW.OBCHECK 23:16 → MW.OB 23:17 → MW.OBCHECK 02-19 03:11 → OBSVTOIN 02-19 14:45 → MW.OB 02-19 17:10
PROVIDERS: ADMIT Obstetrics & Gynecology; ATTEND Obstetrics & Gynecology
PROC: 10E0XZZ Delivery of Products of Conception, External Approach (ICD-10-PCS; principal; 2020-02-19)
PROC: 10907ZC Drainage of Amniotic Fluid, Therapeutic from Products of Conception, Via Natural or Artificial Opening (ICD-10-PCS; 2020-02-19)
PROC: 3E0R3BZ Introduction of Anesthetic Agent into Spinal Canal, Percutaneous Approach (ICD-10-PCS; 2020-02-19)
PROC: 00HU33Z Insertion of Infusion Device into Spinal Canal, Percutaneous Approach (ICD-10-PCS; 2020-02-19)
DX: O60.14X0 Preterm labor third trimester with preterm delivery third trimester, not applicable or unspecified (principal); O13.4 Gestational [pregnancy-induced] hypertension without significant proteinuria, complicating childbirth; Z3A.36 36 weeks gestation of pregnancy; Z37.0 Single live birth; O99.824 Streptococcus B carrier state complicating childbirth; O69.81X0 Labor and delivery complicated by cord around neck, without compression, not applicable or unspecified; Z20.828 Contact with and (suspected) exposure to other viral communicable diseases
CPT/HCPCS: 36415; 51702; 59025; 59409; 82803; 85014; 85018; 85025; 86592; 86850; 86900; 86901; A9270-GY; J0290; J0595; J2405; J2590; J2795; J3010; J7050; J7120; U0002

== ENCOUNTER 2022-02-21 08:52 | Emergency (ER) | payer BC ==
[2022-02-21] MEDS ORDERED: Ondansetron 4 MG/2 ML SDV IVPUSH ONE (09:00)
[2022-02-21] MEDS ORDERED: Lactated Ringers 1,000 ML IV ONE (09:00)
[2022-02-21 09:47] LABS: CORONAVIRUS COVID-19 NAA NEGATIVE (NEGATIVE); INFLUENZA A NAA POSITIVE (NEGATIVE); INFLUENZA B NAA NEGATIVE (NEGATIVE); RESPIRATORY SYNCYTIAL VIR NAA NEGATIVE (NEGATIVE)
[2022-02-21 10:18] LABS: CARBON DIOXIDE,CO2 23.9 mmol/L (21.0-32.0); POTASSIUM,K 3.8 mmol/L (3.5-5.1)
[2022-02-21] MEDS ORDERED: Ibuprofen 400 MG Tab PO ONE (10:25)
[2022-02-21] MEDS ORDERED: Acetaminophen 325 MG Tab PO ONE (10:25)
== END 2022-02-21 11:13 | disposition home or self-care (01) ==
LOC: MW.ED 08:52
DX: J11.1 Influenza due to unidentified influenza virus with other respiratory manifestations (principal); K21.9 Gastro-esophageal reflux disease without esophagitis; E66.9 Obesity, unspecified; Z68.33 Body mass index [BMI] 33.0-33.9, adult; Z88.8 Allergy status to other drugs, medicaments and biological substances; Z88.5 Allergy status to narcotic agent; Z91.010 Allergy to peanuts; Z79.899 Other long term (current) drug therapy; Z20.822 Contact with and (suspected) exposure to COVID-19
CPT/HCPCS: 0241U; 36415; 80053; 83605; 83690; 84703; 85025; 87651; 96361; 96374; 99284; A9270; J2405; J7120